=== PATIENT | male | born 1940 | race Caucasian/White ===

== ENCOUNTER → 2025-01-02 09:01 | Outpatient (REF) | payer MEDICARE, OTHER, SELFPAY ==
[2025-01-02 11:19] LABS: Blood Urea Nitrogen 14 mg/dl (9-20); Calcium 9.3 mg/dl (8.4-10.2); Carbon Dioxide 25 mmol/L (22-30); Chloride 100 mmol/L (98-107); Glucose 84 mg/dl (70-99); Sodium 134 mmol/L (135-145); eGFR > 60.00
[2025-01-02 11:21] LABS: PSA, Total - Diagnostic 0.59 ng/ml (0.0-4.0)
== END ==
LOC: OLABPV 09:01
PROVIDERS: ATTENDING PHYSICIAN Urology; FAMILY PHYSICIAN Internal Medicine Geriatric Medicine
DX: N40.1 Benign prostatic hyperplasia with lower urinary tract symptoms (principal); R39.14 Feeling of incomplete bladder emptying; N52.9 Male erectile dysfunction, unspecified; Z76.89 Persons encountering health services in other specified circumstances; Z13.31 Encounter for screening for depression; G25.0 Essential tremor; E87.1 Hypo-osmolality and hyponatremia
CPT/HCPCS: 36415; 80048; 84153

== ENCOUNTER → 2025-05-04 15:34 | Outpatient (REF) | payer MEDICARE, OTHER, SELFPAY | LOC: PAVMRI 15:34 | PROVIDERS: ATTENDING PHYSICIAN Orthopaedic Surgery Hand Surgery; FAMILY PHYSICIAN Internal Medicine Geriatric Medicine | DX: M12.811 Other specific arthropathies, not elsewhere classified, right shoulder (principal) | CPT/HCPCS: 73221 ==

== ENCOUNTER → 2025-06-05 11:04 | Outpatient (REF) | payer MEDICARE, OTHER, SELFPAY ==
[2025-06-05 13:27] LABS: Hematocrit 40.4 % (39.0-52.0); Hemoglobin 13.8 g/dL (13.0-18.0); Mean Corp Hgb Conc. 34.2 g/dL (33.0-37.0); Mean Corpuscular Volume 97.8 fL (80.0-94.0); Nucleated Red Blood Cells % 0 % (-); Platelet Count 258 10^3/uL (130-400); Red Cell Dist. Width 11.8 % (11.5-14.5)
[2025-06-05 13:42] LABS: ALT (SGPT) 25 U/L (0-50); AST (SGOT) 35 U/L (17-59); Albumin 4.3 g/dl (3.5-5.0); Alkaline Phosphatase 58 U/L (38-126); Blood Urea Nitrogen 13 mg/dl (9-20); Calcium 9.1 mg/dl (8.4-10.2); Carbon Dioxide 28 mmol/L (22-30); Chloride 95 mmol/L (98-107); Glucose 78 mg/dl (70-99); Potassium 4.6 mmol/L (3.5-5.1); Sodium 130 mmol/L (135-145); Total Protein 7.2 g/dl (6.3-8.2); eGFR > 60.00
== END ==
LOC: OLABPV 11:04
PROVIDERS: ATTENDING PHYSICIAN Nurse Practitioner Family
DX: Z01.818 Encounter for other preprocedural examination (principal); I11.0 Hypertensive heart disease with heart failure; E78.5 Hyperlipidemia, unspecified
CPT/HCPCS: 36415; 80053; 85025

== ENCOUNTER → 2025-06-08 09:50 | Outpatient (REF) | payer MEDICARE, OTHER, SELFPAY ==
[2025-06-08 10:58] LABS: ALT (SGPT) 28 U/L (0-50); AST (SGOT) 38 U/L (17-59); Albumin 4.5 g/dl (3.5-5.0); Alkaline Phosphatase 59 U/L (38-126); Blood Urea Nitrogen 14 mg/dl (9-20); Calcium 9.6 mg/dl (8.4-10.2); Chloride 95 mmol/L (98-107); Glucose 102 mg/dl (70-99); Potassium 4.4 mmol/L (3.5-5.1); Sodium 128 mmol/L (135-145); Total Protein 7.6 g/dl (6.3-8.2); eGFR > 60.00
[2025-06-08 11:07] LABS: Carbon Dioxide 26 mmol/L (22-30)
== END ==
LOC: CLAB 09:50
PROVIDERS: ATTENDING PHYSICIAN Nurse Practitioner Family
DX: E87.1 Hypo-osmolality and hyponatremia (principal)
CPT/HCPCS: 36415; 80053

== ENCOUNTER → 2025-06-12 12:37 | Outpatient (REF) | payer MEDICARE, OTHER, SELFPAY ==
[2025-06-12 13:59] LABS: Blood Urea Nitrogen 14 mg/dl (9-20); Calcium 9.5 mg/dl (8.4-10.2); Carbon Dioxide 31 mmol/L (22-30); Chloride 97 mmol/L (98-107); Glucose 90 mg/dl (70-99); Potassium 5.3 mmol/L (3.5-5.1); Sodium 133 mmol/L (135-145); eGFR > 60.00
== END ==
LOC: OLABPV 12:37
PROVIDERS: ATTENDING PHYSICIAN Nurse Practitioner Family
DX: E87.1 Hypo-osmolality and hyponatremia (principal)
CPT/HCPCS: 36415; 80048

== ENCOUNTER 2025-06-18 06:15 | Day surgery (SDC) | payer MEDICARE, OTHER, SELFPAY ==
[2025-06-18] VITALS (8 sets, daily range): BP systolic 122–174; BP diastolic 72–99; BMI 23.4
[2025-06-18] MEDS: MOBIC 15 MG PO (08:18)
[2025-06-18] MEDS: TYLENOL 1000 MG PO (08:18)
[2025-06-18] MEDS: NORMOSOL-R/PLASMALYTE-A 1000 IV (08:27)
[2025-06-18] MEDS: CLEOCIN 50 IV (14:11)
== END 2025-06-18 14:40 | disposition home or self-care (01) ==
LOC: SDS 06:15
PROVIDERS: ATTENDING PHYSICIAN Orthopaedic Surgery Hand Surgery
DX: M19.011 Primary osteoarthritis, right shoulder (principal); Z96.611 Presence of right artificial shoulder joint
CPT/HCPCS: 23472; 73020; C1713; C1776

== ENCOUNTER → 2025-06-26 11:04 | Outpatient (REF) | payer MEDICARE, OTHER, SELFPAY ==
[2025-06-26 12:32] LABS: Blood Urea Nitrogen 15 mg/dl (9-20); Calcium 9.2 mg/dl (8.4-10.2); Carbon Dioxide 28 mmol/L (22-30); Chloride 97 mmol/L (98-107); Glucose 80 mg/dl (70-99); Potassium 4.8 mmol/L (3.5-5.1); Sodium 131 mmol/L (135-145); eGFR > 60.00
== END ==
LOC: OLABPV 11:04
PROVIDERS: ATTENDING PHYSICIAN Nurse Practitioner Family
DX: R89.9 Unspecified abnormal finding in specimens from other organs, systems and tissues (principal)
CPT/HCPCS: 36415; 80048